=== PATIENT | female | born 1970 | race Caucasian/White ===

== ENCOUNTER → 2016-11-09 | Outpatient (CLI) | payer OTHER ==
--- NOTE | ~2016-11-09 | CR63 ---
[facility] A Service of [facility] RADIOLOGY TEXT RESULTS PATIENT: KAUSHIK KHAN LOCATION: [facility] : [birth year] UNIT #: [id number] AGE: [address]: Stephen Gaxiola MD SEX: F ORDER DR: [id number] [facility] [address] [place], [place] [address] [id number] MR#: [id number] Acc #: [id number] NAME: KAUSHIK KHAN : 1970 SEX: F STUDY DATE/TIME: 11/09/2016 13:12 UNIT: [facility] ROOM: STUDY DESCRIPTION: CR Chest 2 View Attending Physician: Stephen Gaxiola M.D. Referring Physician: Stephen Gaxiola M.D. Ordering Physician: Stephen Gaxiola M.D. Primary Care Physician: No Primary Care Physician MEDICAL IMAGING REPORT This report is preliminary unless electronic signature is present EXAM Chest, 2 views. DATE OF EXAM 11/09/2016, 1312 hours. CLINICAL HISTORY 45-year-old with history of right lung cancer complaining of shortness of air for 3 weeks. COMPARISON Chest film, 09/07/2016. FINDINGS Upright PA and lateral views of the chest demonstrate right thoracotomy change with stable opacification and volume loss in the right hemithorax. The light left lung is hyperexpanded and clear. There is a right central venous port catheter with tip in SVC. IMPRESSION 1. Right pneumonectomy change with stable opacification and volume loss. Hyperinflation of the left lung with clear left lung. There is no left effusion. 2. There is a right central venous port catheter with tip in SVC. Dictated by... Hellen Madison M.D. THIS IS AN ELECTRONICALLY VERIFIED REPORT Hellen Madison M.D. at 11/10/2016 9:34 AM COREY/jorge luis [facility] A Service of [facility] RADIOLOGY TEXT RESULTS PATIENT: KAUSHIK KHAN LOCATION: [facility] : [birth year] UNIT #: [id number] AGE: [address]: Stephen Gaxiola MD SEX: F ORDER DR: TD: 11/09/2016 15:44 JOB #: [id number] MEDICAL IMAGING REPORT Page 1 of 1 COPY
== END | disposition home or self-care (01) ==
LOC: CRAD 12:36
DX: Z08 Encounter for follow-up examination after completed treatment for malignant neoplasm (principal); R91.8 Other nonspecific abnormal finding of lung field; Z90.2 Acquired absence of lung [part of]; Z85.118 Personal history of other malignant neoplasm of bronchus and lung; Z98.890 Other specified postprocedural states
CPT/HCPCS: 71020